=== PATIENT | male | born 1960 | race Caucasian/White ===

== ENCOUNTER 2019-07-05 06:15 | Emergency (ER) | payer OTHER ==
[~2019-07-05] VITALS: Ht 177.8 cm; Wt 130.5 kg
[2019-07-05] MEDS ORDERED: PIOGLITAZONE HC30 MG PO (06:28)
[2019-07-05] MEDS ORDERED: GLUCOPHAGE1000 MG PO (06:29)
[2019-07-05] MEDS ORDERED: WELLBUTRIN PO (06:30)
[2019-07-05] MEDS ORDERED: ASPIRIN 32325 MG/TAB PO (06:31)
[2019-07-05] MEDS ORDERED: COZAAR25 M1 (06:31)
[2019-07-05 07:14] LABS: EOS # 0.1 (0.04-0.40); EOS % 1.1 % (0.0-4.0); HEMATOCRIT 44.7 % (42.0-52.0); HEMOGLOBIN 14.8 g/dL (13.5-18.0); LYMPH# 1.9 (1.50-4.00); MEAN CELL VOLUME 91 fl (78-100); MEAN CORPUSCULAR HEMOGLOBIN 30 pg (27-31); MEAN CORPUSCULAR HGB CONC 33 g/dL (33-37); MEAN PLATELET VOLUME 11.4 fl (7.4-10.4); MONO # 0.5 (0.20-0.80); NEU # 5.3 (1.40-6.50); PLATELET COUNT 147 K/mm3 (130-400); RED BLOOD COUNT 4.94 M/mm3 (4.20-5.60); RED CELL DISTRIBUTION WIDTH 13.1 % (11.5-14.5); WHITE BLOOD COUNT 7.9 K/mm3 (4.8-10.8)
[2019-07-05 07:22] LABS: ALBUMIN 4.1 g/dL (3.5-5.0); POTASSIUM 4.4 mmol/L (3.5-5.1); SODIUM 138 mmol/L (136-145)
[2019-07-05 07:24] LABS: CALCIUM 9.4 mg/dL (8.3-10.5)
[2019-07-05 07:25] LABS: GLUCOSE 167 mg/dL (75-110); TOTAL PROTEIN 6.8 g/dL (6.4-8.3)
[2019-07-05 07:26] LABS: CARBON DIOXIDE 23 mmol/L (22-29)
[2019-07-05 07:27] LABS: TOTAL BILIRUBIN 0.3 mg/dL (0.2-1.2)
[2019-07-05 07:30] LABS: AST-SGOT 13 U/L (5-34)
[2019-07-05 07:31] LABS: ALT/SGPT 20 U/L (0-55)
[2019-07-05 07:37] LABS: TROPONIN-I < 0.03 ng/mL (<0.030)
[2019-07-05 08:09] VITALS: BP 151/94
== END 2019-07-05 08:10 | disposition home or self-care (01) ==
LOC: ED 06:15
PROVIDERS: Family Medicine
DX: I10 Essential (primary) hypertension (principal); E11.9 Type 2 diabetes mellitus without complications; Z79.82 Long term (current) use of aspirin; Z79.84 Long term (current) use of oral hypoglycemic drugs